=== PATIENT | male | born 1955 | race African-American/Black ===

== ENCOUNTER → 2019-01-04 10:28 | Outpatient (CLI) | payer MEDICARE, OTHER, SELFPAY ==
--- NOTE | 2019-01-04 | DI.US.S_ITS ---
PROCEDURE: US RENAL COMPLETE INDICATIONS: CYST OF KIDNEY, ACQUIRED TECHNIQUE: Real-time scanning was performed of the kidneys and bladder, with image documentation. COMPARISON: Outside Film, CT, CT ABDOMEN RENAL PROTOCOL, 07/14/2016, 8:01. FINDINGS: Kidneys: Kidneys are normal in size. Right kidney measures 12.7 cm long; left kidney measures 11.3 cm long. Right renal cortical thickness is 1.5 cm; left renal cortical thickness is 1.5 cm. Renal cortical echotexture is normal. No hydronephrosis or nephrolithiasis. No suspicious solid mass lesions. Bilateral renal cysts redemonstrated, similar to prior CT scan with the largest on the right measuring up to 5.1 cm and 2.6 cm on the left. Bladder: Pre-void bladder volume is 49 mL. Post-void residual is 7 mL. Pre-void images demonstrate no intraluminal masses or stones. On pre-void images, bilateral ureteral jets are noted with color Doppler interrogation. (Of note, ureteral jets may not be detectable in up to 25% of cases due to insufficient differences in specific gravity between ureteral and bladder urine). Miscellaneous: No free pelvic fluid. IMPRESSION: Bilateral renal cysts redemonstrated. Dictated by: Mike FRENCH Interpreted: Jason Mao MD on 01/04/2019 at 16:23 Approved by: Jason Mao M.D. on 01/07/2019 at 8:37
== END ==
PROVIDERS: Visit Provider Urology
DX: N28.1 Cyst of kidney, acquired (principal)
CPT/HCPCS: 76770

== ENCOUNTER → 2019-07-08 09:46 | Outpatient (CLI) | payer MEDICARE, OTHER, SELFPAY ==
--- NOTE | 2019-07-08 | DI.CT.S_ITS ---
PROCEDURE: CT ABDOMEN WO/W CON INDICATIONS: RENAL CYST TECHNIQUE: Optional 5 mm thick noncontrast images acquired from the diaphragm to the iliac crests. After the administration of intravenous contrast, 5 mm thick images again acquired from the diaphragm to the iliac crests in the arterial and urographic phases. 5 mm thick coronal and sagittal reformats were then acquired. For radiation dose reduction, the following was used: automated exposure control, adjustment of mA and/or kV according to patient size. COMPARISON: Outside Film, CT, CT ABDOMEN RENAL PROTOCOL, 07/14/2016, 8:01. [facility], , US RENAL COMPLETE, 01/04/2019, 10:48. Outside Film, CR, XR CHEST 1 VIEW, 08/10/2016, 15:21. FINDINGS: Image quality: Excellent. Lung bases: Lung bases are clear. Heart size is normal. Genitourinary: The exophytic dominant right mid renal cortical cyst as mildly enlarged from the comparison CT 07/14/16, previously measuring 4.3 cm in maximal transverse dimension and now measuring 5.2 cm. It shows no abnormal internal or mural nodular enhancement. The hyperdense cyst at the left kidney has slightly diminished in size, having a maximal oblique AP dimension previously in 2017 of 3.0 cm and now 2.8 cm. Other solid organs: Liver is normal in size and enhancement. Gallbladder appears normal where well visualized but is partially contracted. Biliary system is non dilated. Pancreas enhances normally. Spleen is normal in size and enhancement. No adrenal nodules. Peritoneum and bowel: Unenhanced bowel loops are normal in wall thickness and caliber. No free fluid or air. Nodes and vessels: No retroperitoneal or mesenteric adenopathy by size criteria. Aorta and inferior vena cava are normal in caliber. Bones: No suspicious bony lesions. No vertebral body compression fractures. Miscellaneous: No ventral hernias. IMPRESSION: Mild interval enlargement of a simple appearing right renal cortical cysts, with reference to the 07/14/[address] Of the enlargement is only a small degree in the maximal dimension of this cyst is currently 5.2 cm. A hyperdense left posterolateral renal cortical cyst now measures up to 2.8 cm and previously it measured 3.0 cm. It does not change in radiodensity through the phases of precontrast and contrast enhancement. No solid mass lesion is found, no urinary tract calculus is seen. No hydronephrosis is present. Dictated by: Jason Mao M.D. on 07/08/2019 at 15:47 Approved by: Jason Mao M.D. on 07/08/2019 at 15:53
[2019-07-08 10:45] LABS: Blood Urea Nitrogen 15 mg/dL (9-20); Estimated Glomerular Filt Rate > 60.0 mL/min (>60)
== END ==
PROVIDERS: PCP Family Medicine; Referring Provider Urology; Visit Provider Urology
DX: N28.1 Cyst of kidney, acquired (principal)
CPT/HCPCS: 36415; 74170; 74178; 82565; 84520; Q9967

== ENCOUNTER → 2019-12-03 15:40 | Outpatient (CLI) | payer MEDICARE, OTHER, SELFPAY ==
--- NOTE | 2019-12-03 | DI.MRI.S_ITS ---
PROCEDURE: MR PELIS WO/W CON INDICATIONS: Elevated prostate specific antigen [PSA], HGPIN TECHNIQUE: Coronal HASTE, axial T1 FSE with fat saturation, 3-plane nonbreath-hold T2 FSE. After the administration of contrast, dynamic axial, delayed axial and coronal VIBE or 2-D FLASH with fat saturation through the pelvis. Optional diffusion weighted imaging and ADC may be performed. COMPARISON: None. FINDINGS: Image quality: Diffusion weighted and dynamic contrast enhanced images are diagnostic. Prostate: Gland size is 5.3 x 4.6 x 4.7 cm; ellipsoid gland volume is 59.6 mL. The gland demonstrates hypertrophy of the transitional zone with three or four fairly discrete circumscribed nodules. Overall the gland signal is somewhat more hypointense on T2 than expected with several ill-defined areas of T2 hypointensity in the transitional zone and relative T2 hypointensity in the right peripheral zone but without corresponding diffusion abnormality. The capsule appears maintained. Lesion size(s): Lesion 1: 1.8 cm in axial oblique plane on diffusion-weighted imaging only. Lesion location(s) (sector): Lesion 1: Right mid transitional zone Lesion description: Lesion 1: Ovoid on diffusion, ill-defined on T2, unencapsulated. No capsular invasion or distortion. There is blurring of the pseudo capsule at this level. T2 weighted imaging (T2WI) morphology score: Lesion 1: Three Diffusion weighted imaging (DWI) morphology score: Lesion 1: Five Dynamic contrast enhancement (DCE): Lesion 1: Present Lesion PI-RADS score: Lesion 1: PI-RADS four Genitourinary system: Bladder wall thickness is normal. Distal ureters are non distended. Bowel and peritoneum: No pathologic free pelvic fluid. Inferior colon and small bowel loops are normal in caliber. Nodes and vessels: No pelvic or inguinal adenopathy by size criteria. Iliac vessels are normal in caliber. Soft tissues: No inguinal hernias. Bones: Marrow demonstrates normal overall signal, without lesions to suggest metastases. IMPRESSION: 1. 1.7 cm right midgland transitional zone lesion with PI-RADS score of four. 2. No findings of local extension or metastatic disease. Dictated by: Karolyn Rosario M.D. on 12/04/2019 at 8:30 Approved by: Karolyn Rosario M.D. on 12/04/2019 at 9:10
== END ==
PROVIDERS: PCP Family Medicine; Referring Provider Urology; Visit Provider Urology
DX: R97.20 Elevated prostate specific antigen [PSA] (principal); N42.31 Prostatic intraepithelial neoplasia
CPT/HCPCS: 72197; A9579

== ENCOUNTER → 2019-12-26 11:59 | Outpatient (CLI) | payer MEDICARE, OTHER, SELFPAY ==
--- NOTE | 2019-12-26 | DI.US.S_ITS ---
PROCEDURE: US RENAL COMPLETE INDICATIONS: RENAL CYST TECHNIQUE: Real-time scanning was performed of the kidneys and bladder, with image documentation. COMPARISON: [facility], CT, CT ABDOMEN WO/W CON, 07/08/2019, 10:54. [facility], US, US RENAL COMPLETE, 01/04/2019, 10:48. FINDINGS: Kidneys: Kidneys are normal in size. Right kidney measures 14 cm long; left kidney measures 12.2 cm long. Right renal cortical thickness is 1.4 cm; left renal cortical thickness is 2 cm. Renal cortical echotexture is normal. No hydronephrosis or nephrolithiasis. No suspicious solid mass lesions. Numerous simple appearing cysts are seen, with more than 5 cysts seen on each side. The largest on the right measures up to 5.1 cm. The largest on the left measures up to 2.6 cm. Bladder: Pre-void bladder volume is 189 mL. Post-void residual is 38 mL. Pre-void images demonstrate no intraluminal masses or stones. The bladder demonstrates a trabeculated wall. On pre-void images, both ureteral jets are noted with color Doppler interrogation. (Of note, ureteral jets may not be detectable in up to 25% of cases due to insufficient differences in specific gravity between ureteral and bladder urine). Miscellaneous: No free pelvic fluid. The prostate is prominent. IMPRESSION: Numerous simple appearing bilateral renal cysts are seen. Moderate postvoid residual, 38 cc. Dictated by: Demian Urbina M.D. on 12/26/2019 at 12:21 Approved by: Demian Urbina M.D. on 12/26/2019 at 12:23
== END ==
PROVIDERS: PCP Family Medicine; Referring Provider Urology; Visit Provider Urology
DX: N28.1 Cyst of kidney, acquired (principal)
CPT/HCPCS: 76770

== ENCOUNTER → 2020-04-17 13:48 | Outpatient (CLI) | payer MEDICARE, OTHER, SELFPAY ==
[2020-04-17 14:23] LABS: Estimated Glomerular Filt Rate > 60.0 mL/min (>60)
--- NOTE | 2020-04-17 14:44 | DI.CT.S_ITS ---
PROCEDURE: CT ABDOMEN WO/W CON INDICATIONS: Other specified disorders of kidney TECHNIQUE: Optional 5 mm thick noncontrast images acquired from the diaphragm to the iliac crests. After the administration of intravenous contrast, 5 mm thick images again acquired from the diaphragm to the iliac crests in the arterial and urographic phases. 5 mm thick coronal and sagittal reformats were then acquired. For radiation dose reduction, the following was used: automated exposure control, adjustment of mA and/or kV according to patient size. COMPARISON: [facility], CT, CT ABDOMEN WO/W CON, 07/08/2019, 10:54. FINDINGS: Image quality: Excellent. Lung bases: Lung bases are clear. Heart size is normal. Genitourinary: There is a rounded stable appearing 3 cm left mid renal cortical cyst, measuring 71.7 Hounsfield units on precontrast imaging and showing no elevation of contrast enhancement on arterial and mixed venous phase is subsequently obtained. Arterial phase enhancement is 71.8 Hounsfield units. The water density right mid renal cortical cyst has not enlarged significantly from the prior study 07/08/19. This cyst measures 5.0 cm in maximal dimension, and shows no internal septations or mural nodularity. Other solid organs: Liver is normal in size and enhancement. Gallbladder appears normal . Biliary system is non dilated. Pancreas enhances normally. Spleen is normal in size and enhancement. No adrenal nodules. Peritoneum and bowel: Unenhanced bowel loops are normal in wall thickness and caliber. No free fluid or air. Nodes and vessels: No retroperitoneal or mesenteric adenopathy by size criteria. Aorta and inferior vena cava are normal in caliber. Bones: No suspicious bony lesions. No vertebral body compression fractures. Miscellaneous: No ventral hernias. IMPRESSION: A presumed proteinaceous cyst is present at the left mid kidney showing no sign of internal enhancement or mural nodularity. This is stable over time from 07/08/19. A water density larger right mid renal cortical cyst measures up to 5.0 cm, and shows no internal or mural enhancement or nodularity, showing imaging characteristics of a simple cyst. This has not significantly enlarged from a prior similar study performed 07/08/19. No adenopathy is seen, no additional abnormality elsewhere is found Dictated by: Jason Mao M.D. on 04/17/2020 at 16:29 Approved by: Jason Mao M.D. on 04/17/2020 at 16:37
[2020-04-17 14:55] LABS: Prostate Specific Antigen 9.11 ng/mL (0.10-4.00)
== END ==
PROVIDERS: PCP Family Medicine; Referring Provider Family Medicine; Visit Provider Urology
DX: N28.89 Other specified disorders of kidney and ureter (principal); N28.1 Cyst of kidney, acquired; R97.20 Elevated prostate specific antigen [PSA]
CPT/HCPCS: 36415; 74170; 82565; 84153; Q9967

== ENCOUNTER → 2022-01-15 08:52 | Outpatient (CLI) | payer MEDICARE, OTHER, SELFPAY ==
--- NOTE | 2022-01-15 08:55 | DI.MRI.S_ITS ---
PROCEDURE: MR PELVIS WO/W CON INDICATIONS: Elevated carcinoembryonic antigen [CEA] TECHNIQUE: Coronal HASTE, axial T1 FSE with fat saturation, 3-plane nonbreath-hold T2 FSE. After the administration of contrast, dynamic axial, delayed axial and coronal VIBE or 2-D FLASH with fat saturation through the pelvis. Optional diffusion weighted imaging and ADC may be performed. COMPARISON: [facility], MR, MR PELVIS WO/W CON, 12/03/2019, 16:07. FINDINGS: Image quality: Diffusion weighted and dynamic contrast enhanced images are diagnostic. Prostate: Gland size is 6.3 x 4.9 x 5.3 cm; ellipsoid gland volume is 85 mL. Mild linear and wedge-shaped ADC hypointensities present within the prostate peripheral zone with indistinct T2 correlates (PI-RADS 2 findings). Enlargement of the prostate transitional zone with findings typical of benign prostatic hyperplasia. No large lesion strongly stands out against background parenchymal changes of BPH on T2 weighted images (PI-RADS 2 findings). Previously described PI-RADS 4 lesion in the right transition zone has an appearance suggestive of a stromal BPH nodule on the current study. Genitourinary system: Bladder wall thickness is normal. Distal ureters are non distended. Bowel and peritoneum: No pathologic free pelvic fluid. Inferior colon and small bowel loops are normal in caliber. Nodes and vessels: No suspicious pelvic or inguinal lymph nodes. Iliac vessels are normal in caliber. Soft tissues: No inguinal hernias. Bones: Marrow demonstrates normal overall signal, without lesions to suggest metastases. IMPRESSION: 1. No large or highly suspicious focal prostate lesion to direct biopsy. There is enlargement of the prostate transitional zone with findings typical of benign prostatic hyperplasia, with prostate volume estimated at 85 cc. 2. No suspicious lymph nodes visualized in the imaged pelvis. Dictated by: Jr Figueroa M.D. on 01/18/2022 at 8:41 Approved by: Jr Figueroa M.D. on 01/18/2022 at 9:06
== END ==
PROVIDERS: PCP Student in an Organized Health Care Education/Training Program; Referring Provider Urology; Visit Provider Urology
DX: R97.0 Elevated carcinoembryonic antigen [CEA] (principal); N40.0 Benign prostatic hyperplasia without lower urinary tract symptoms
CPT/HCPCS: 72197; A9579

== ENCOUNTER → 2022-01-26 18:25 | Outpatient (CLI) | payer MEDICARE, OTHER, SELFPAY ==
--- NOTE | 2022-01-26 18:30 | DI.MRI.S_ITS ---
PROCEDURE: MR ANGIO HEAD WO CON INDICATIONS: DIZZINESS AND GIDDINESS TECHNIQUE: Noncontrast axial 3-D [id number] MR angiogram, with 3-dimensional maximum intensity projection (MIP) reformats of the internal carotid arteries and posterior circulation then performed. COMPARISON: None. FINDINGS: Image quality: Excellent. Anterior circulation: Intracranial internal carotid arteries demonstrate normal size and intraluminal flow signal. The flow within the paired anterior cerebral arteries is normal and symmetric. The flow within the middle cerebral arteries is normal and symmetric. The anterior communicating artery is seen. No stenoses, occlusions, or aneurysms. Posterior circulation: Left vertebral artery is dominant. Visualized portions of the vertebral arteries demonstrate normal caliber, and join to form a normal appearing basilar artery. The flow within the posterior cerebral arteries is normal and symmetric. No stenoses, occlusions, or aneurysms. IMPRESSION: No areas of hemodynamically significant stenosis, vascular occlusion or aneurysmal dilation within the anterior circulation. No areas of hemodynamically significant stenosis, vascular occlusion or aneurysmal dilation within the posterior circulation. Dictated by: Estrella Rust M.D. on 01/27/2022 at 9:55 Approved by: Estrella Rust M.D. on 01/27/2022 at 9:59
== END ==
PROVIDERS: PCP Student in an Organized Health Care Education/Training Program; Referring Provider Student in an Organized Health Care Education/Training Program; Visit Provider Student in an Organized Health Care Education/Training Program
DX: R42 Dizziness and giddiness (principal)
CPT/HCPCS: 70544

== ENCOUNTER → 2023-07-19 14:23 | Outpatient (CLI) | payer MEDICARE, OTHER, SELFPAY ==
--- NOTE | 2023-07-19 14:32 | DI.CT.S_ITS ---
PROCEDURE: CT ABDOMEN WWO PELVIS W INDICATIONS: Cyst of kidney, acquired TECHNIQUE: After the administration of oral contrast, 5 mm thick sections acquired from the diaphragms to the iliac crests. After the administration of intravenous contrast, 5 mm thick sections acquired from the diaphragms to the symphysis. 5 mm thick coronal and sagittal reformats were acquired. For radiation dose reduction, the following was used: automated exposure control, adjustment of mA and/or kV according to patient size. COMPARISON: Outside Film, CT, CT ABDOMEN RENAL PROTOCOL, 05/19/2021, 15:07. FINDINGS: Image quality: Diagnostic. Lower Chest: No significant findings. ABDOMEN: Liver: No solid mass. Gallbladder: No radiopaque gallstones or wall thickening. Biliary ducts: No biliary dilation. Pancreas: No ductal dilation. Spleen: Size is within normal limits. Adrenal Glands: No adrenal nodules. Kidneys and Ureters: No hydronephrosis. There is a mildly heterogeneous lesion on the anterior, medial pole of the upper right kidney measuring 1.4 centimeters. This demonstrates delayed enhancement, concerning for a solid mass. This is unchanged in size compared with 2020. Bilateral hemorrhagic and proteinaceous cysts are present. Enhancing, solid mass in the inferior pole of the left kidney measuring 1.4 centimeter (series 3, image 40). Stomach and Bowel: Normal colonic caliber, without significant wall thickening. Peritoneum: No abnormal intraperitoneal fluid. No free air. Ventral Wall: No significant ventral hernia. Abdominal Nodes: No retroperitoneal or mesenteric adenopathy by size criteria. Vessels: Aorta and inferior vena cava are normal in size. PELVIS: Pelvic Organs: Prostatomegaly. Bladder: No bladder wall thickening, accounting for underdistention. Pelvic Nodes: No enlarged lymph nodes. Miscellaneous: No inguinal hernias are seen. Bones: No aggressive osseous abnormality. IMPRESSION: Enhancing, solid mass in the inferior pole of the left kidney measuring 1.4 centimeters, concerning for renal cell carcinoma. Consider IR referral for cryoablation. 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 No retroperitoneal adenopathy. No invasion beyond the perirenal fascia. Dictated by: Tyrone Paul M.D. on 07/19/2023 at 16:20 Approved by: Tyrone Paul M.D. on 07/19/2023 at 16:33
[2023-07-19 15:01] LABS: Estimated Glomerular Filt Rate > 60 mL/min (>60)
== END ==
PROVIDERS: Radiology Neuroradiology; Referring Provider Urology; Visit Provider Urology
DX: N28.1 Cyst of kidney, acquired (principal); N28.89 Other specified disorders of kidney and ureter; N40.0 Benign prostatic hyperplasia without lower urinary tract symptoms
CPT/HCPCS: 36415; 74178; 82565; Q9967

== ENCOUNTER → 2023-08-16 11:44 | Outpatient (CLI) | payer MEDICARE, OTHER, SELFPAY ==
--- NOTE | 2023-08-16 12:46 | DI.MRI.S_ITS ---
PROCEDURE: MR PELVIC PROSTATE PROTOCOL INDICATIONS: Elevated prostate specific antigen [PSA] Additional history: PSA 9.11. TECHNIQUE: Coronal HASTE, axial T1 FSE with fat saturation, 3-plane nonbreath-hold T2 FSE. After the administration of contrast, dynamic axial, delayed axial and coronal VIBE or 2-D FLASH with fat saturation through the pelvis. Diffusion weighted imaging and ADC was performed. COMPARISON: [facility], MR, MR PELVIS WO/W CON, 12/03/2019, 16:07. [facility], MR, MR PELVIS WO/W CON, 01/15/2022, 9:18. [facility], CT, CT ABDOMEN WWO PELVIS W, 07/19/2023, 15:15. FINDINGS: Image quality: Diffusion weighted and dynamic contrast enhanced images are diagnostic. Prostate: Gland size is 5.3 x 5.1 x 4 cm; ellipsoid gland volume is 56 mL. No significant foci of intrinsic T1 hyperintensity to suggest hemorrhage. Multiple BPH nodules. Lesion 1: Location: Left mid gland peripheral zone, on axial series 4, image 16 and sagittal series 6, image 19. Size: 1.6 x 1.2 cm. New. T2W signal: Hypointense. DWI signal: Slightly hyperintense. ADC signal: Hypointense. 3. Enhancement: Yes. Extracapsular extension: No. No neurovascular involvement. PI-RADS score: 4. Lesion 2: Location: Right mid gland peripheral zone, on axial series 4, image 16 and sagittal series 6, image 10. Size: 0.8 x 0.7 cm. New. T2W signal: Hypointense. DWI signal: Isointense ADC signal: Heterogeneous. 3. Enhancement: Yes. Extracapsular extension: No. No neurovascular involvement. PI-RADS score: 3. Lesion 3: Location: Left apex peripheral zone, on axial series 4, image 19 and sagittal series 6, image 16. Size: 1.8 x 1.6. New. T2W signal: Hypointense. DWI signal: Slightly hyperintense. ADC signal: Hypointense. 3. Enhancement: Yes. Extracapsular extension: No definite extension. No neurovascular involvement. PI-RADS score: 4. Genitourinary system: Trabeculated urinary bladder wall. Distal ureters are non distended. Bowel and peritoneum: No pathologic free pelvic fluid. Inferior colon and small bowel loops are normal in caliber. Nodes and vessels: No pelvic or inguinal adenopathy by size criteria. Iliac vessels are normal in caliber. Soft tissues: No inguinal hernias. Bones: Marrow demonstrates normal overall signal, without lesions to suggest metastases. IMPRESSION: 1. Marked prostatomegaly. Multiple BPH nodules. 2. Left mid gland peripheral zone new observation measuring 1.6 cm. PI-RADS 4. 3. Left apex peripheral zone new observation measuring 1.8 cm. PI-RADS 4. 4. Right mid gland peripheral zone new observation measuring 0.8 cm. PI-RADS 3. 5. No enlarged lymph nodes. Dictated by: Jas Gaona M.D. on 08/16/2023 at 15:59 Approved by: Jas Gaona M.D. on 08/16/2023 at 16:44
== END ==
PROVIDERS: Referring Provider Urology; Visit Provider Urology
DX: N40.2 Nodular prostate without lower urinary tract symptoms (principal); R97.20 Elevated prostate specific antigen [PSA]; N32.89 Other specified disorders of bladder
CPT/HCPCS: 72197; A9579